=== PATIENT | female | born 1950 | race Caucasian/White ===

== ENCOUNTER → 2017-07-07 | Outpatient (CLI) | payer MEDICARE ==
--- NOTE | 2017-07-07 17:27 | REP ---
Left rib series: Three views including PA chest radiograph. History: Left-sided rib pain. Acute. Comparison study: Portable chest x-ray October 19, 2013. Findings: PA chest radiograph shows no evidence of pneumothorax or hydrothorax. The aorta is somewhat tortuous. Heart is not enlarged. There is diffuse osteopenia. Rib views show no evidence of acute rib fracture or focal bony destructive lesion. There are some degenerative changes in the thoracic spine. Impression: Diffuse osteopenia. No active cardiopulmonary disease seen. Signed by Missael Mary MD 07/08/2017 08:16 A
== END ==
LOC: M ADAMS 16:00
PROVIDERS: ATTEND Physician Assistant
DX: M85.9 Disorder of bone density and structure, unspecified (principal)

== ENCOUNTER → 2017-11-10 | Outpatient (REF) | payer MEDICARE ==
[2017-11-10 20:01] LABS: BASO % 0.3 % (0.0-1.0); EOS % 0.3 % (0.0-3.0); HEMATOCRIT 46.2 % (36.0-47.0); HEMOGLOBIN 14.6 g/dl (12.0-15.5); IMMATURE GRANULOCYTE % 0.4 % (0-3.0); LYMPH % 9.2 % (24.0-44.0); MEAN CORPUSCULAR HEMOGLOBIN 27.5 pg (27.0-33.0); MEAN CORPUSCULAR HGB CONC 31.6 g/dl (32.0-36.5); MONO # 0.7 10^3/uL (0.0-0.8); MONO % 5.9 % (0.0-5.0); NEUTROPHILS # 9.4 10^3/uL (1.8-7.7); NEUTROPHILS % 83.9 % (36.0-66.0); PLATELET COUNT, AUTOMATED 314 10^3/uL (150-450); RED BLOOD COUNT 5.31 10^6/uL (4.00-5.40); RED CELL DISTRIBUTION WIDTH 17.8 % (11.5-14.5); WHITE BLOOD COUNT 11.2 10^3/uL (4.0-10.0)
[2017-11-10 20:17] LABS: ALBUMIN 4.2 GM/DL (3.2-5.2); ALBUMIN/GLOBULIN RATIO 1.08 (1.00-1.93); ALKALINE PHOSPHATASE 142 U/L (45-117); ALT/SGPT 39 U/L (12-78); ANION GAP 8 MEQ/L (8-16); AST/SGOT 35 U/L (7-37); BILIRUBIN,TOTAL 0.2 MG/DL (0.2-1.0); BLOOD UREA NITROGEN 11 MG/DL (7-18); CALCIUM LEVEL 9.5 MG/DL (8.8-10.2); CARBON DIOXIDE LEVEL 27 MEQ/L (21-32); CHLORIDE LEVEL 110 MEQ/L (98-107); CREATININE FOR GFR 0.81 MG/DL (0.55-1.30); GLOMERULAR FILTRATION RATE > 60.0 (>45); GLUCOSE, FASTING 92 MG/DL (70-100); MAGNESIUM LEVEL 2.2 MG/DL (1.8-2.4); POTASSIUM SERUM 4.1 MEQ/L (3.5-5.1); SODIUM LEVEL 145 MEQ/L (136-145); TOTAL PROTEIN 8.1 GM/DL (6.4-8.2)
== END ==
LOC: M LAB REF 19:23
DX: R35.0 Frequency of micturition (principal); R42 Dizziness and giddiness
CPT/HCPCS: 83735

== ENCOUNTER → 2018-01-04 | Outpatient (REF) | payer MEDICARE | LOC: M LAB REF 12:51 | DX: M54.6 Pain in thoracic spine (principal); N39.0 Urinary tract infection, site not specified | CPT/HCPCS: 87086 ==

== ENCOUNTER → 2019-08-15 | Outpatient (REF) | payer MEDICARE ==
[2019-08-15 16:48] LABS: BASO % 0.6 % (0.0-1.0); EOS # 0.1 10^3/uL (0.0-0.5); EOS % 1.6 % (0.0-3.0); HEMATOCRIT 43.8 % (36.0-47.0); HEMOGLOBIN 14.3 g/dl (12.0-15.5); LYMPH # 1.8 10^3/uL (1.5-5.0); LYMPH % 26.1 % (24.0-44.0); MEAN CORPUSCULAR HEMOGLOBIN 29.9 pg (27.0-33.0); MEAN CORPUSCULAR HGB CONC 32.6 g/dl (32.0-36.5); MEAN CORPUSCULAR VOLUME 91.4 fl (80.0-96.0); MONO # 0.7 10^3/uL (0.0-0.8); MONO % 9.2 % (0.0-5.0); NEUTROPHILS # 4.4 10^3/uL (1.5-8.5); NEUTROPHILS % 62.2 % (36.0-66.0); PLATELET COUNT, AUTOMATED 227 10^3/uL (150-450); RED BLOOD COUNT 4.79 10^6/uL (4.00-5.40); WHITE BLOOD COUNT 7.1 10^3/uL (4.0-10.0)
[2019-08-15 16:59] LABS: ALBUMIN 3.8 GM/DL (3.2-5.2); ALT/SGPT 24 U/L (12-78); BILIRUBIN,TOTAL 0.4 MG/DL (0.2-1.0); BLOOD UREA NITROGEN 14 MG/DL (7-18); C REACTIVE PROTEIN QUANTITATIV < 0.30 MG/DL (0.00-0.30); CALCIUM LEVEL 9.3 MG/DL (8.8-10.2); CARBON DIOXIDE LEVEL 27 MEQ/L (21-32); CHLORIDE LEVEL 105 MEQ/L (98-107); CREATININE FOR GFR 0.75 MG/DL (0.55-1.30); GLOMERULAR FILTRATION RATE > 60.0 (>39); GLUCOSE, FASTING 81 MG/DL (70-100); POTASSIUM SERUM 4.3 MEQ/L (3.5-5.1); SODIUM LEVEL 139 MEQ/L (136-145); TOTAL PROTEIN 6.9 GM/DL (6.4-8.2)
[2019-08-15 17:22] LABS: ERYTHROCYTE SEDIMENTATION RATE 8 mm/hr (0-30)
== END ==
LOC: M SFHCRHEU 14:48
PROVIDERS: ATTEND Internal Medicine
DX: M05.79 Rheumatoid arthritis with rheumatoid factor of multiple sites without organ or systems involvement (principal)
CPT/HCPCS: 36415; 80053; 85025; 85652; 86140; G0463

== ENCOUNTER → 2020-05-12 | Outpatient (REF) | payer MEDICARE ==
[2020-05-12 17:46] LABS: BASO # 0.1 10^3/uL (0.0-0.2); BASO % 0.8 % (0.0-1.0); EOS # 0.2 10^3/uL (0.0-0.5); HEMATOCRIT 44.5 % (36.0-47.0); HEMOGLOBIN 14.2 g/dl (12.0-15.5); LYMPH # 1.9 10^3/uL (1.5-5.0); LYMPH % 25.9 % (24.0-44.0); MEAN CORPUSCULAR HEMOGLOBIN 29.8 pg (27.0-33.0); MEAN CORPUSCULAR HGB CONC 31.9 g/dl (32.0-36.5); MEAN CORPUSCULAR VOLUME 93.5 fl (80.0-96.0); MONO # 0.6 10^3/uL (0.0-0.8); MONO % 8.1 % (0.0-5.0); NEUTROPHILS # 4.7 10^3/uL (1.5-8.5); NEUTROPHILS % 63.1 % (36.0-66.0); PLATELET COUNT, AUTOMATED 266 10^3/uL (150-450); RED BLOOD COUNT 4.76 10^6/uL (4.00-5.40); WHITE BLOOD COUNT 7.4 10^3/uL (4.0-10.0)
[2020-05-12 18:02] LABS: ALBUMIN 3.5 GM/DL (3.2-5.2); ALT/SGPT 25 U/L (12-78); BILIRUBIN,TOTAL 0.2 MG/DL (0.2-1.0); BLOOD UREA NITROGEN 14 MG/DL (7-18); CALCIUM LEVEL 9.2 MG/DL (8.8-10.2); CARBON DIOXIDE LEVEL 27 MEQ/L (21-32); CHLORIDE LEVEL 107 MEQ/L (98-107); CREATININE FOR GFR 0.68 MG/DL (0.55-1.30); GLOMERULAR FILTRATION RATE > 60.0 (>39); GLUCOSE, FASTING 82 MG/DL (70-100); POTASSIUM SERUM 4.4 MEQ/L (3.5-5.1); SODIUM LEVEL 140 MEQ/L (136-145); TOTAL PROTEIN 6.8 GM/DL (6.4-8.2)
[2020-05-12 18:13] LABS: TOTAL 25(OH) VITAMIN D 38.6 NG/ML (30.0-100.0)
[2020-05-12 19:03] LABS: ERYTHROCYTE SEDIMENTATION RATE 9 mm/hr (0-30)
== END ==
LOC: M SFHCRHEU 15:26
PROVIDERS: ATTEND Internal Medicine
DX: M05.79 Rheumatoid arthritis with rheumatoid factor of multiple sites without organ or systems involvement (principal); M40.204 Unspecified kyphosis, thoracic region; Z79.899 Other long term (current) drug therapy

== ENCOUNTER → 2020-12-26 | Outpatient (REF) | payer MEDICARE | LOC: M WUC 20:20 | PROVIDERS: ATTEND Physician Assistant | DX: J02.9 Acute pharyngitis, unspecified (principal) ==

== ENCOUNTER 2021-03-03 13:56 | Emergency (ER) | payer MEDICARE ==
[~2021-03-03] VITALS: Ht 147.3 cm; Wt 54.5 kg
[2021-03-03] MEDS ORDERED: FOLI1TAB11 PO (15:58)
[2021-03-03] MEDS ORDERED: CBD OIL (15:58)
[2021-03-03] MEDS ORDERED: LISI10TA22 PO (15:58)
[2021-03-03] MEDS ORDERED: CALCTAB89 PO (15:58)
[2021-03-03 16:00] LABS: BASO # 0.1 10^3/uL (0.0-0.2); BASO % 0.9 % (0.0-1.0); EOS % 0.4 % (0.0-3.0); HEMATOCRIT 44.3 % (36.0-47.0); HEMOGLOBIN 14.7 g/dl (12.0-15.5); LYMPH # 0.7 10^3/uL (1.5-5.0); LYMPH % 10.4 % (24.0-44.0); MEAN CORPUSCULAR HEMOGLOBIN 30.1 pg (27.0-33.0); MEAN CORPUSCULAR HGB CONC 33.2 g/dl (32.0-36.5); MEAN CORPUSCULAR VOLUME 90.8 fl (80.0-96.0); MONO # 0.9 10^3/uL (0.0-0.8); MONO % 12.9 % (2.0-8.0); NEUTROPHILS # 5.2 10^3/uL (1.5-8.5); NEUTROPHILS % 74.8 % (36.0-66.0); PLATELET COUNT, AUTOMATED 298 10^3/uL (150-450); RED BLOOD COUNT 4.88 10^6/uL (4.00-5.40); WHITE BLOOD COUNT 6.9 10^3/uL (4.0-10.0)
--- NOTE | 2021-03-03 16:20 | REP ---
INDICATION: palpitations. COMPARISON: 07/07/2017 TECHNIQUE: PA and Lateral views. FINDINGS: There is a 4 cm left lower lobe mass. The lungs are otherwise clear. The heart is not enlarged. There is no failure. The mediastinum is not widened. Further evaluation with chest CT is recommended. IMPRESSION: 4 CM MASS LEFT LOWER LOBE WITH MALIGNANT APPEARANCE. FURTHER EVALUATION WITH CHEST CT RECOMMENDED. <Electronically signed by Morgan Bleivns > 03/03/21 [id number]
[2021-03-03 16:30] LABS: ALBUMIN 3.8 GM/DL (3.2-5.2); ALT/SGPT 33 U/L (12-78); BILIRUBIN,DIRECT < 0.1 MG/DL (0.0-0.2); BILIRUBIN,TOTAL 0.2 MG/DL (0.2-1.0); BLOOD UREA NITROGEN 14 MG/DL (7-18); CARBON DIOXIDE LEVEL 22 MEQ/L (21-32); CHLORIDE LEVEL 108 MEQ/L (98-107); CK-MB VALUE MASS 1.6 NG/ML (<3.6); CPK CREATINE PHOSPHOKINASE 80 U/L (26-192); CREATININE FOR GFR 0.97 MG/DL (0.55-1.30); FREE T4 1.15 NG/DL (0.76-1.46); GLOMERULAR FILTRATION RATE > 60.0 (>39); GLUCOSE, FASTING 99 MG/DL (70-100); MAGNESIUM LEVEL 2.3 MG/DL (1.8-2.4); PHOSPHORUS LEVEL 3.6 MG/DL (2.5-4.9); POTASSIUM SERUM 4.7 MEQ/L (3.5-5.1); SODIUM LEVEL 139 MEQ/L (136-145); TOTAL PROTEIN 7.2 GM/DL (6.4-8.2); TROPONIN I < 0.02 NG/ML (< 0.10)
[2021-03-03] MEDS ORDERED: ISOVUE-370 76% 100ML VIAL As Ordered ONE (16:41)
--- NOTE | 2021-03-03 17:07 | REP ---
INDICATION: palpitations ? lung mass. COMPARISON: Chest x-ray done earlier today TECHNIQUE: CT angio technique FINDINGS: 3.5 cm spiculated solid mass superior segment left lower lobe consistent with malignant neoplasm. Area of atelectasis in the left lower lobe. Lungs otherwise clear. No evidence of pulmonary embolus. No hilar or mediastinal adenopathy. Numerous thoracic compression fractures. Osteoporosis. Kyphosis. 4 cm cyst right lobe of the liver. 2.2 x 1.5 cm nodule left adrenal gland. Right adrenal gland unremarkable. IMPRESSION: 3.5 cm spiculated malignant-appearing mass superior segment left lower lobe. No evidence of pulmonary embolus. 2 cm nodule left adrenal gland. Numerous thoracic compression fractures Liver cyst. <Electronically signed by Morgan Blevins > 03/03/21 0134
[2021-03-03 18:15] VITALS: BP 113/56
--- NOTE | 2021-03-04 07:11 | ECGEPIP ---
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
--- NOTE | 2021-03-06 13:51 | ED PDOC ---
Post-Departure Follow-Up radiology report faxed to Esperanza Brady MD Mar 06, 2021 13:51
== END 2021-03-03 19:00 | disposition home or self-care (01) ==
LOC: EDBD 13:56 → M ED 13:56
DX: R00.2 Palpitations (principal); R91.1 Solitary pulmonary nodule; E27.9 Disorder of adrenal gland, unspecified; K76.89 Other specified diseases of liver; Z87.891 Personal history of nicotine dependence
CPT/HCPCS: 36415; 71046; 71275; 80048; 80076; 82550; 82553; 83735; 84100; 84439; 84443; 84484; 85025; 93005; 93041; 94760; 99285; Q9967

== ENCOUNTER → 2021-03-04 | Outpatient (CLI) | payer MEDICARE ==
[~2021-03-04] MED LIST: CALCTAB89 PO; CBD OIL; FOLI1TAB11 PO; LISI10TA22 PO
[2021-03-04 17:28] LABS: BASO # 0.1 10^3/uL (0.0-0.2); BASO % 0.7 % (0.0-1.0); EOS % 0.4 % (0.0-3.0); HEMATOCRIT 45.6 % (36.0-47.0); HEMOGLOBIN 14.6 g/dl (12.0-15.5); LYMPH # 0.5 10^3/uL (1.5-5.0); LYMPH % 7.5 % (24.0-44.0); MEAN CORPUSCULAR HEMOGLOBIN 29.3 pg (27.0-33.0); MEAN CORPUSCULAR VOLUME 91.4 fl (80.0-96.0); MONO % 14.4 % (2.0-8.0); NEUTROPHILS # 5.5 10^3/uL (1.5-8.5); NEUTROPHILS % 76.4 % (36.0-66.0); PLATELET COUNT, AUTOMATED 301 10^3/uL (150-450); RED BLOOD COUNT 4.99 10^6/uL (4.00-5.40); WHITE BLOOD COUNT 7.2 10^3/uL (4.0-10.0)
== END ==
LOC: M PLALAB 14:48
PROVIDERS: ATTEND Internal Medicine Pulmonary Disease
DX: R91.8 Other nonspecific abnormal finding of lung field (principal)

== ENCOUNTER → 2021-03-20 | Outpatient (CLI) | payer MEDICARE ==
[~2021-03-20] MED LIST changes: +AUGM500T34 PO
== END ==
LOC: M LABSMTC 10:19
PROVIDERS: ATTEND Anesthesiology
DX: Z01.812 Encounter for preprocedural laboratory examination (principal)

== ENCOUNTER 2021-03-25 08:06 | Day surgery (SDC) | payer MEDICARE ==
[~2021-03-25] VITALS: Ht 149.9 cm; Wt 54.4 kg
[~2021-03-25 08:06] MED LIST changes: +ALBUTEROL SULFATE 2.5 MG/0.5 ML INH NEB SOLN INH ONE; +LIDOCAINE 1% MDV 20ML VIAL SQ PRN; +LIDOCAINE 4% INJ 5ML AMP NEB ONE; +LR 1,000 ML IV ONE
[2021-03-25] MEDS ORDERED: LIDOCAINE 1% SDV 30ML VIAL As Ordered ONE (08:42)
[2021-03-25] MEDS ORDERED: EPINEPHrine 1MG/10ML SYRINGE 1.5IN As Ordered ONE ×2 (08:42→09:29)
[2021-03-25] MEDS ORDERED: THROMBIN SOLN 5,000 UNITS VIAL As Ordered ONE ×2 (08:42→09:28)
[2021-03-25] MEDS ORDERED: CETACAINE SPRAY 5GM As Ordered ONE (08:42)
[2021-03-25] MEDS ORDERED: ROCURONIUM BROMIDE 50 MG/5 ML VIAL As Ordered ONE (08:53)
[2021-03-25] MEDS ORDERED: propofoL 200 MG/20 ML VIAL As Ordered ONE (08:53)
[2021-03-25] MEDS ORDERED: LIDOCAINE 2% 100MG/5ML SDV (FOR ANES.) As Ordered ONE (08:53)
[2021-03-25] MEDS ORDERED: dexameTHASONE 4 MG/ML 1ML VIAL (J1100 PER 1MG) As Ordered ONE (08:53)
[2021-03-25] MEDS ORDERED: MIDAZOLAM INJ 2MG/2ML VIAL (J2250 PER 1MG) As Ordered ONE (08:54)
[2021-03-25] MEDS ORDERED: fentaNYL 100 MCG/2 ML INJECTION (J3010) As Ordered ONE (08:54)
[2021-03-25] MEDS ORDERED: LIDOCAINE 1% MDV 20ML VIAL As Ordered ONE (09:28)
[2021-03-25] MEDS ORDERED: PHENYLephrine 500MCG 5ML (100MCG/ML) SYRINGE As Ordered ONE (09:34)
[2021-03-25] MEDS ORDERED: SUGAMMADEX SODIUM 500 MG/5 ML VIAL (BRIDION) As Ordered ONE (09:34)
[2021-03-25] MEDS ORDERED: LACRILUBE (AKWA TEARS) OPHTH OINT 3.5 GM As Ordered ONE (09:44)
[2021-03-25] MEDS ORDERED: LR 1,000 ML IV SCH (10:10)
[2021-03-25] MEDS ORDERED: ONDANSETRON 4MG/2ML VIAL IV PRN (10:10)
[2021-03-25] MEDS ORDERED: METOCLOPRAMIDE INJ 10MG/2ML VIAL (J2765 PER 1) IV PRN (10:10)
[2021-03-25] MEDS ORDERED: MEPERIDINE INJ 25 MG/ML VIAL (J2175) IV PRN (10:10)
[2021-03-25] MEDS ORDERED: oxyCODONE 5MG TAB PO PRN (10:10)
[2021-03-25] MEDS ORDERED: fentaNYL 100 MCG/2 ML INJECTION (J3010) IV PRN (10:10)
--- NOTE | 2021-03-25 10:33 | REP ---
INDICATION: POST OP IN PACU. COMPARISON: Comparison chest x-ray March 03, 2021. TECHNIQUE: Sitting AP portable chest x-ray. Single-view. FINDINGS: The patient is rotated very slightly to the left. There is no evidence of pneumothorax or hydrothorax. The left perihilar soft tissue mass is again seen. EKG monitoring electrodes and oxygen delivery tubing are noted. No new infiltrate is seen. Heart size is unchanged. IMPRESSION: Left lower lobe perihilar mass again seen. No complication noted. <Electronically signed by Danny Mary > 03/25/21 1021
[2021-03-25 11:11] VITALS: BP 143/73
--- NOTE | 2021-03-25 12:29 | RO ---
OPERATIVE NOTE DATE OF OPERATION: 03/25/2021 PREOPERATIVE DIAGNOSIS: Left lower lobe mass, abnormal chest CT. POSTOPERATIVE DIAGNOSIS: Left lower lobe mass, abnormal chest CT. PROCEDURE: Bronchoscopy with endobronchial ultrasound linear probe. PROCEDURALIST: CHANDANA VALENTINO DO [facility] FIRE FIGHTER: GLORIA GONSALEZ MD SPECIMENS OBTAINED: 1. Endobronchial biopsy of left lower lobe. 2. Cytobrush of left lower lobe. ANESTHESIA: General. ESTIMATED BLOOD LOSS: Less than 15 ml. COMPLICATIONS: None. DRAINS: None. EPI of 1:10,000 concentration was administered during the procedure. DESCRIPTION OF PROCEDURE: After informed consent was reviewed with the patient, she was brought back to the OR #A. The patient was intubated, the case was handed over to me with an 8.5 endotracheal tube. Time-out was performed with two patient identifiers identifying correct site, correct procedure correlating name and date of to chest CT and robotic imaging. Robot was not used as there was an endobronchial lesion. Cetacaine spray was used to anesthetize the airway. Trachea was midline. Mellissa was very sharp with out-splaying. Right and left mainstem bronchi were normal without endobronchial lesions. RB 1 through 10 without endobronchial lesions but some cartilaginous abnormalities. No endobronchial lesion in RB 1 through 10. LB 1 through 5 was inspected without endobronchial lesion. The superior basal segment on the left lower lobe was without endobronchial lesion with three open airways. The lateral basal segment in the left lower lobe was obscured with tumor. Anterior and posterior basal left lower lobe airways were without lesions. The lateral basal segment was biopsied and cytology suggested abnormal cells with Touch Prep. Endobronchial forceps biopsies were obtained followed by cytology brushing. After adequate sampling the bronchoscope was removed, endobronchial ultrasound was then inserted to view the mediastinum. Both right and left pre-carinal areas were without significant adenopathy. The mellissa was very sharp without significant adenopathy. There was a small left hilar node measuring 4 mm, unobtainable due to surrounding vascular structures. Therefore, in summary, there was no concerning adenopathy which correlates with this CT scan. Endobronchial ultrasound was removed and the 1T190 bronchoscope was reinserted to ensure hemostasis. After hemostasis was assured, bronchoscope was removed, the case was handed over to Anesthesia. Patient was extubated and is in recovery. Post-procedure chest x-ray is pending. At this point in time no observed complications. MTDD
== END 2021-03-25 11:15 | disposition home or self-care (01) ==
LOC: M SDC 08:06
PROVIDERS: ATTEND Internal Medicine Pulmonary Disease
DX: C34.32 Malignant neoplasm of lower lobe, left bronchus or lung (principal); I10 Essential (primary) hypertension; J43.1 Panlobular emphysema; K21.9 Gastro-esophageal reflux disease without esophagitis; M81.0 Age-related osteoporosis without current pathological fracture; Z79.899 Other long term (current) drug therapy; Z87.891 Personal history of nicotine dependence
CPT/HCPCS: 31623; 31652; 71045; 88104; 88305; 88341; 88342; J1100; J2250; J2370; J3010

== ENCOUNTER → 2021-04-13 | Outpatient (CLI) | payer MEDICARE ==
[~2021-04-13] MED LIST changes: -ALBUTEROL SULFATE 2.5 MG/0.5 ML INH NEB SOLN INH ONE; -LIDOCAINE 1% MDV 20ML VIAL SQ PRN; -LIDOCAINE 4% INJ 5ML AMP NEB ONE; -LR 1,000 ML IV ONE
--- NOTE | 2021-04-14 08:46 | REP ---
INDICATION: INITIAL STAGING LEFT LOWER LOBE LUNG CANCER C34.32. Adenocarcinoma on bronchoscopy. COMPARISON: Comparison CT study of the chest March 03, 2021. TECHNIQUE: Forty-eight minutes following the intravenous injection of a 8.44 mCi dose of F-18 FDG, three-dimensional PET scintigraphy is acquired from the skull base to the proximal thighs. Triplanar noncontrast CT scanning is acquired through the same anatomic range for attenuation correction, and image registration with scan parameters optimized to minimize radiation exposure to the patient. PET scintigraphy and CT datasets were fused and displayed on a workstation with multiplanar and projection display capability. FINDINGS: Head and neck soft tissues are unremarkable. The the superior segment left lower lobe mass is rather hypermetabolic. Maximum standard uptake value within this lesion is 10.61. There is abnormal hilar or mediastinal hypermetabolic uptake focus. No other abnormal pulmonary parenchymal hypermetabolic uptake is seen. In the abdomen and pelvis, there is normal distribution of tracer to the liver, spleen, GI tract, and tract. The small left adrenal nodule identified on recent CT study is seen to be low-density on today's accompanying noncontrast CT, mean Hounsfield unit density is -14 consistent with this being a benign adrenal nodule. No significant uptake. There are 2 simple cysts in the liver. No abnormal abdominal or pelvic hypermetabolic uptake. No abnormal skeletal uptake. IMPRESSION: The superior segment left lower lobe mass is quite hypermetabolic. No other abnormal hypermetabolic focus. <Electronically signed by Danny Mary > 04/14/21 0803
== END ==
LOC: M PLARAD 14:49
PROVIDERS: ATTEND Internal Medicine Pulmonary Disease
DX: C34.32 Malignant neoplasm of lower lobe, left bronchus or lung (principal)
CPT/HCPCS: 78815; A9552

== ENCOUNTER → 2021-05-26 | Outpatient (CLI) | payer MEDICARE ==
[~2021-05-26] MED LIST changes: +PROHANCE 279.3MG/ML 15ML VIAL As Ordered ONE
--- NOTE | 2021-05-26 15:30 | REPVR ---
PROCEDURE INFORMATION: Exam: MR Head Without and With Contrast Exam date and time: 05/26/2021 3:03 PM Age: 70 years old Clinical indication: Nscls, staging TECHNIQUE: Imaging protocol: MR of the head without and with intravenous contrast. Contrast material: PROHANCE; Contrast volume: 10 ml; Contrast route: INTRAVENOUS (IV); COMPARISON: PET/CT Skull/mid thigh 04/13/2021 4:15 PM FINDINGS: Brain: There are occasional nonspecific foci of high signal abnormality in the morris radiata and centrum semiovale. These are best seen on the flair images. These foci may represent areas of gliosis, demyelination, and/or chronic ischemic change. Cerebral ventricles: Normal. No ventriculomegaly. Bones/joints: Unremarkable. Paranasal sinuses: Normal as visualized. No acute sinusitis. Mastoid air cells: Normal as visualized. No mastoid effusion. Orbital cavity: Unremarkable. Soft tissues: Unremarkable. Other findings: There is no abnormal enhancement. IMPRESSION: There are occasional nonspecific foci of high signal abnormality in the morris radiata and centrum semiovale. These are best seen on the flair images. These foci may represent areas of gliosis, demyelination, and/or chronic ischemic change. No acute infarct is identified. Electronically signed by: Sidney Raymundo On 05/26/2021 15:30:15 PM
== END ==
LOC: M RAD 10:39
PROVIDERS: ATTEND Thoracic Surgery (Cardiothoracic Vascular Surgery)
DX: C34.32 Malignant neoplasm of lower lobe, left bronchus or lung (principal)
CPT/HCPCS: 70553; A9576

== ENCOUNTER → 2021-05-29 | Outpatient (CLI) | payer MEDICARE ==
[~2021-05-29] MED LIST changes: -PROHANCE 279.3MG/ML 15ML VIAL As Ordered ONE
--- NOTE | 2021-05-31 10:47 | ECHO ---
ECHOCARDIOGRAM DATE OF PROCEDURE: 05/29/2021 Age: 70 Gender: Female Height: 157 cm Weight: 65 kg REFERRING PHYSICIAN: Laci Jackson DO. PATIENT LOCATION: Outpatient. REASON FOR STUDY: Chemotherapy monitoring. Malignant neoplasm of the lungs. 2D MEASUREMENTS: IVS 1.1 cm LV 3.7 cm LVPW 0.9 cm LA 3.7 cm Aorta 3.0 cm DOPPLER MEASUREMENT Peak velocity across the aortic valve 1.1 m/s Peak velocity across the LVOT 0.7 m/s Mitral E 0.51 Mitral A 0.75 with a ratio of 0.7 Maximum tricuspid valve velocity 1.9 m/s 2D COMMENTS: 1. Normal left ventricular size, wall thickness, and normal global left ventricular systolic function. The estimated left ventricular systolic ejection fraction is 60% to 65%. 2. Normal left atrium. Normal right atrium and right ventricle. 3. The atrial septum appeared to be normal without evidence of defect or shunt. 4. Normal aortic root. 5. No pericardial effusion seen. 6. Minimally calcified aortic valve with normal leaflet excursion. 7. Mildly calcified mitral annulus with normal anterior mitral valve leaflet motion. Normal tricuspid valve and pulmonic valve. The proximal pulmonary artery branches were not well visualized. 8. The inferior vena cava was not visualized. DOPPLER: Detects trace aortic regurgitation, mild mitral regurgitation, trace tricuspid regurgitation. The calculated pulmonary artery systolic pressure was normal. IMPRESSION: 1. Normal global left ventricular systolic function. There are some features of grade 1 left ventricular diastolic dysfunction manifested by abnormal relaxation. 2. Aortic valve sclerosis with trace aortic regurgitation, but no aortic stenosis. 3. Mitral annular calcification with mild mitral regurgitation. 4. Trace tricuspid regurgitation with a normal calculated pulmonary artery systolic pressure.
== END ==
LOC: M CARPUL 11:13
PROVIDERS: ATTEND Thoracic Surgery (Cardiothoracic Vascular Surgery)
DX: C34.32 Malignant neoplasm of lower lobe, left bronchus or lung (principal); R68.89 Other general symptoms and signs

== ENCOUNTER → 2021-06-11 | Outpatient (CLI) | payer MEDICARE ==
[~2021-06-11] MED LIST changes: +ISOVUE-370 76% 100ML VIAL As Ordered ONE
--- NOTE | 2021-06-11 11:06 | REP ---
INDICATION: LT LUNG CA STAGING COMPARISON: 03/03/2021 TECHNIQUE: Axial contrast enhanced images from the thoracic inlet to the upper abdomen with coronal and sagittal reformations using 75 ml Isovue 370 intravenous contrast material. [address] CT examination was performed using the following dose reduction techniques: Automated exposure control, adjustment of mA and/or kv according to the patient's size, and use of iterative reconstruction technique. FINDINGS: There is a 3.5 cm spiculated mass in the right lower lobe with suspected small left hilar lymph node. Remainder of lung gross demonstrate COPD/emphysematous changes. No effusion. No consolidation or further masses/nodules are identified. Tracheobronchial tree is patent. Mediastinum demonstrates age-related changes to the thoracic aorta, pulmonary vasculature and heart/pericardium. No pericardial effusion or cardiomegaly. Limited upper abdomen includes stable hepatic hypodensities likely representing cysts measuring up to 3.6 cm. Enlarged heterogeneous appearing left adrenal gland cannot exclude associated metastatic disease. Surrounding musculoskeletal structures without acute osseous abnormality. IMPRESSION: 1. Solitary 3.5 cm spiculated mass in the left lower lobe with possible left hilar lymph node. 2. Heterogeneous mildly prominent left adrenal gland suspicious for metastatic disease. 3. Hepatic hypodensities likely represent cysts and remains stable. <Electronically signed by Gera Shaffer > 06/11/21 [id number]
== END ==
LOC: M RAD 09:20
PROVIDERS: ATTEND Thoracic Surgery (Cardiothoracic Vascular Surgery)
DX: C34.32 Malignant neoplasm of lower lobe, left bronchus or lung (principal)
CPT/HCPCS: 71260; Q9967

== ENCOUNTER → 2021-12-18 | Outpatient (CLI) | payer MEDICARE ==
[~2021-12-18] MED LIST changes: +DEXA4TA PO; +GASTROGRAFIN SOLUTION 30ML (Q9963) As Ordered ONE; +ONDA-84 PO; +PROC10TA5 PO
== END ==
LOC: M RAD 14:00
PROVIDERS: ATTEND Nurse Practitioner
DX: C34.32 Malignant neoplasm of lower lobe, left bronchus or lung (principal); Z90.2 Acquired absence of lung [part of]; E04.1 Nontoxic single thyroid nodule; I70.0 Atherosclerosis of aorta; M81.0 Age-related osteoporosis without current pathological fracture; S22.000D Wedge compression fracture of unspecified thoracic vertebra, subsequent encounter for fracture with routine healing
CPT/HCPCS: 71260; 74177; Q9963; Q9967

== ENCOUNTER → 2022-03-18 | Outpatient (CLI) | payer MEDICARE ==
[~2022-03-18] MED LIST changes: -GASTROGRAFIN SOLUTION 30ML (Q9963) As Ordered ONE; -ISOVUE-370 76% 100ML VIAL As Ordered ONE
== END ==
LOC: M RAD 11:18
PROVIDERS: ATTEND Family Medicine
DX: M25.511 Pain in right shoulder (principal); M50.31 Other cervical disc degeneration, high cervical region; M50.322 Other cervical disc degeneration at C5-C6 level

== ENCOUNTER → 2022-06-30 | Outpatient (CLI) | payer MEDICARE | LOC: M SOG 14:53 | PROVIDERS: ATTEND Orthopaedic Surgery | DX: M25.531 Pain in right wrist (principal) ==

== ENCOUNTER 2022-09-03 08:54 | Emergency (ER) | payer MEDICARE ==
[~2022-09-03] VITALS: Ht 147.3 cm; Wt 56.2 kg
[2022-09-03] MEDS ORDERED: GABA-282 PO (12:31)
[2022-09-03 13:28] VITALS: BP 116/53
== END 2022-09-03 13:29 | disposition home or self-care (01) ==
LOC: M ED 08:54
DX: S22.050A Wedge compression fracture of T5-T6 vertebra, initial encounter for closed fracture (principal); E04.1 Nontoxic single thyroid nodule; I10 Essential (primary) hypertension; G47.33 Obstructive sleep apnea (adult) (pediatric); C34.90 Malignant neoplasm of unspecified part of unspecified bronchus or lung; F12.10 Cannabis abuse, uncomplicated; F10.10 Alcohol abuse, uncomplicated; Z79.811 Long term (current) use of aromatase inhibitors; Z79.891 Long term (current) use of opiate analgesic; Z79.899 Other long term (current) drug therapy

== ENCOUNTER → 2022-09-14 | Outpatient (CLI) | payer MEDICARE ==
[~2022-09-14] MED LIST changes: +GABA-282 PO
[2022-09-14 13:42] LABS: THYROID STIMULATING HORMONE 1.066 uIU/ML (0.55-4.78); THYROXINE (T4) 8.4 UG/DL (4.5-10.9)
[2022-09-14 13:43] LABS: FREE THYROXINE INDEX 2.7 % (1.3-4.8); T UPTAKE 32.4 % (22.5-37.0)
[2022-09-14 13:47] LABS: FOLATE 14.77 NG/ML (>5.4)
== END ==
LOC: M PLALAB 08:49
PROVIDERS: ATTEND Psychiatry & Neurology Neurology
DX: D51.9 Vitamin B12 deficiency anemia, unspecified (principal); E51.9 Thiamine deficiency, unspecified; E03.9 Hypothyroidism, unspecified; R25.1 Tremor, unspecified

== ENCOUNTER 2022-10-22 22:00 | Emergency (ER) | payer MEDICARE ==
[~2022-10-22] VITALS: Ht 149.9 cm; Wt 60.0 kg
[2022-10-22] MEDS ORDERED: MORPHINE 2 MG/ML 1ML VIAL IV ONE (22:20)
[2022-10-22] MEDS ORDERED: ACETAMINOPHEN 1000MG 100ML IV BAG IV ONE (22:50)
[2022-10-23 00:14] LABS: BLOOD UREA NITROGEN 15 MG/DL (9-23); CALCIUM LEVEL 9.2 MG/DL (8.3-10.6); CARBON DIOXIDE LEVEL 26 MMOL/L (20-31); CHLORIDE LEVEL 104 MMOL/L (98-107); CREATININE FOR GFR 0.63 MG/DL (0.55-1.30); GLOMERULAR FILTRATION RATE > 60.0 (>39); GLUCOSE, FASTING 127 MG/DL (74-106); POTASSIUM SERUM 4.1 MMOL/L (3.5-5.1); SODIUM LEVEL 137 MMOL/L (136-145)
[2022-10-23] MEDS ORDERED: MORPHINE 4 MG/ML 1ML VIAL IV ONE (00:30)
[2022-10-23 00:47] LABS: BASO % 0.3 % (0.0-1.0); EOS % 0.1 % (0.0-3.0); HEMATOCRIT 42.5 % (36.0-47.0); HEMOGLOBIN 13.6 g/dl (12.0-15.5); LYMPH # 0.9 10^3/uL (1.5-5.0); LYMPH % 5.6 % (24.0-44.0); MEAN CORPUSCULAR HEMOGLOBIN 28.8 pg (27.0-33.0); MONO # 1.1 10^3/uL (0.0-0.8); NEUTROPHILS # 13.3 10^3/uL (1.5-8.5); NEUTROPHILS % 85.3 % (36.0-66.0); PLATELET COUNT, AUTOMATED 231 10^3/uL (150-450); RED BLOOD COUNT 4.72 10^6/uL (4.00-5.40); WHITE BLOOD COUNT 15.6 10^3/uL (4.0-10.0)
[2022-10-23 01:09] LABS: RSV AMPLIFICATION NEGATIVE (NEGATIVE)
[2022-10-23 01:25] VITALS: BP 157/68
== END 2022-10-23 01:46 | disposition short-term general hospital (02) ==
LOC: M ED 22:00 → EDBD 22:00 → M ED 10-23 01:46
DX: S72.421A Displaced fracture of lateral condyle of right femur, initial encounter for closed fracture (principal); S22.080A Wedge compression fracture of T11-T12 vertebra, initial encounter for closed fracture; W10.9XXA Fall (on) (from) unspecified stairs and steps, initial encounter; I10 Essential (primary) hypertension; C56.9 Malignant neoplasm of unspecified ovary; Z85.118 Personal history of other malignant neoplasm of bronchus and lung; Y92.009 Unspecified place in unspecified non-institutional (private) residence as the place of occurrence of the external cause; Z79.811 Long term (current) use of aromatase inhibitors; Z79.899 Other long term (current) drug therapy
CPT/HCPCS: 72125; 72128; 73700; 80048; 85025; 87631; 96374; 96375; 96376; 99284; J0131

== ENCOUNTER → 2023-01-06 | Outpatient (CLI) | payer MEDICARE ==
[~2023-01-06] MED LIST changes: +PRIM50TA6
== END ==
LOC: M SOG 10:47
PROVIDERS: ATTEND Orthopaedic Surgery
DX: M17.11 Unilateral primary osteoarthritis, right knee (principal); M25.761 Osteophyte, right knee; Q74.1 Congenital malformation of knee

== ENCOUNTER → 2023-05-24 | Outpatient (CLI) | payer MEDICARE ==
[2023-05-24 10:37] LABS: BASO % 0.5 % (0.0-1.0); EOS # 0.1 10^3/uL (0.0-0.5); EOS % 1.3 % (0.0-3.0); HEMATOCRIT 42.1 % (36.0-47.0); HEMOGLOBIN 13.4 g/dl (12.0-15.5); LYMPH # 1.4 10^3/uL (1.5-5.0); LYMPH % 16.6 % (24.0-44.0); MEAN CORPUSCULAR HEMOGLOBIN 28.8 pg (27.0-33.0); MEAN CORPUSCULAR HGB CONC 31.8 g/dl (32.0-36.5); MEAN CORPUSCULAR VOLUME 90.3 fl (80.0-96.0); MONO # 0.7 10^3/uL (0.0-0.8); MONO % 8.5 % (2.0-8.0); NEUTROPHILS # 6.3 10^3/uL (1.5-8.5); NEUTROPHILS % 72.9 % (36.0-66.0); PLATELET COUNT, AUTOMATED 298 10^3/uL (150-450); RED BLOOD COUNT 4.66 10^6/uL (4.00-5.40); WHITE BLOOD COUNT 8.6 10^3/uL (4.0-10.0)
[2023-05-24 11:00] LABS: ALBUMIN 3.5 G/DL (3.2-5.2); ALKALINE PHOSPHATASE 126 U/L (46-116); ALT/SGPT 27 U/L (7.0-40); AST/SGOT 23 U/L (<34); BILIRUBIN,TOTAL 0.3 MG/DL (0.3-1.2); BLOOD UREA NITROGEN 9 MG/DL (9-23); CARBON DIOXIDE LEVEL 27 MMOL/L (20-31); CHLORIDE LEVEL 103 MMOL/L (98-107); CREATININE FOR GFR 0.56 MG/DL (0.55-1.30); GLOMERULAR FILTRATION RATE > 60.0 (>39); GLUCOSE, FASTING 92 MG/DL (74-106); POTASSIUM SERUM 4.3 MMOL/L (3.5-5.1); SODIUM LEVEL 140 MMOL/L (136-145); TOTAL PROTEIN 6.9 G/DL (5.7-8.2)
== END ==
LOC: M LAB 09:51
PROVIDERS: ATTEND Internal Medicine Medical Oncology
DX: C34.90 Malignant neoplasm of unspecified part of unspecified bronchus or lung (principal)

== ENCOUNTER → 2023-05-26 | Outpatient (CLI) | payer MEDICARE ==
[~2023-05-26] MED LIST changes: +ISOVUE-370 76% 100ML VIAL As Ordered ONE
== END ==
LOC: M RAD 09:55
PROVIDERS: ATTEND Nurse Practitioner
DX: C34.90 Malignant neoplasm of unspecified part of unspecified bronchus or lung (principal)
CPT/HCPCS: 71260; Q9967

== ENCOUNTER → 2023-09-08 | Outpatient (CLI) | payer MEDICARE ==
[~2023-09-08] MED LIST changes: +GASTROGRAFIN SOLUTION 30ML As Ordered ONE; +OMEP10CASR PO
== END ==
LOC: M RAD 11:16
PROVIDERS: ATTEND Internal Medicine Hematology & Oncology
DX: C34.90 Malignant neoplasm of unspecified part of unspecified bronchus or lung (principal); J34.9 Unspecified disorder of nose and nasal sinuses
CPT/HCPCS: 71260; 74177; Q9963; Q9967

== ENCOUNTER 2024-01-22 15:18 | Observation (INO) | payer OTHER, MEDICARE ==
[~2024-01-22] VITALS: Ht 147.3 cm; Wt 59.5 kg
[~2024-01-22 15:18] MED LIST changes: -GASTROGRAFIN SOLUTION 30ML As Ordered ONE; -ISOVUE-370 76% 100ML VIAL As Ordered ONE
[2024-01-22] MEDS: ACETAMINOPHEN TAB 650MG DOSE (2X325MG) PO ONE (15:45)
[2024-01-22 16:00] LABS: VENOUS BASE EXCESS -2.1 (-2.0-2.0); VENOUS HCO3 22.7 MMOL/L (23.0-27.0); VENOUS O2 SATURATION 70.6 % (60.0-80.0); VENOUS PARTIAL PRESSURE CO2 39.2 mmHg (38.0-50.0); VENOUS PARTIAL PRESSURE O2 37.2 mmHg (30.0-50.0); VENOUS TOTAL CO2 23.9 MMOL/L (24.0-28.0)
[2024-01-22 16:01] LABS: BASO % 0.4 % (0.0-1.0); EOS # 0.1 10^3/uL (0.0-0.5); HEMATOCRIT 44.1 % (36.0-47.0); HEMOGLOBIN 14.1 g/dl (12.0-15.5); LYMPH # 1.8 10^3/uL (1.5-5.0); LYMPH % 16.6 % (24.0-44.0); MEAN CORPUSCULAR HEMOGLOBIN 29.1 pg (27.0-33.0); MEAN CORPUSCULAR VOLUME 90.9 fl (80.0-96.0); MONO # 0.8 10^3/uL (0.0-0.8); MONO % 7.7 % (2.0-8.0); NEUTROPHILS % 73.3 % (36.0-66.0); PLATELET COUNT, AUTOMATED 229 10^3/uL (150-450); RED BLOOD COUNT 4.85 10^6/uL (4.00-5.40); WHITE BLOOD COUNT 10.8 10^3/uL (4.0-10.0)
[2024-01-22] MEDS: MORPHINE 4 MG/ML 1ML VIAL IV ONE (16:01)
[2024-01-22] MEDS: NS 1,000 ML IV ONE ×2 (16:01→16:40)
[2024-01-22] MEDS ORDERED: ISOVUE-370 76% 100ML VIAL As Ordered ONE (16:13)
[2024-01-22 16:14] LABS: INR 0.92; PROTHROMBIN TIME 12.1 SECONDS (12.5-14.5)
[2024-01-22 16:22] LABS: ETHYL ALCOHOL (ETHANOL) < 0.003 % (0.000-0.010); LIPASE 54 U/L (12-53)
[2024-01-22 16:23] LABS: AMYLASE 81 U/L (30-118)
[2024-01-22 16:24] LABS: ALBUMIN 3.9 G/DL (3.2-5.2); ALKALINE PHOSPHATASE 104 U/L (46-116); ALT/SGPT 17 U/L (7.0-40); AST/SGOT 25 U/L (<34); BILIRUBIN,DIRECT < 0.1 MG/DL (<0.4); BILIRUBIN,TOTAL 0.3 MG/DL (0.3-1.2); BLOOD UREA NITROGEN 15 MG/DL (9-23); CALCIUM LEVEL 9.5 MG/DL (8.3-10.6); CARBON DIOXIDE LEVEL 27 MMOL/L (20-31); CHLORIDE LEVEL 104 MMOL/L (98-107); CK-MB VALUE MASS 6.8 NG/ML (<3.6); CREATININE FOR GFR 0.67 MG/DL (0.55-1.30); GLOMERULAR FILTRATION RATE > 60.0 (>39); GLUCOSE, FASTING 135 MG/DL (74-106); POTASSIUM SERUM 3.8 MMOL/L (3.5-5.1); SODIUM LEVEL 138 MMOL/L (136-145); TOTAL PROTEIN 6.5 G/DL (5.7-8.2)
[2024-01-22 16:25] LABS: CPK CREATINE PHOSPHOKINASE 172 U/L (34-145); MB/CK RELATIVE INDEX 3.95 (< OR =4)
[2024-01-22] MEDS: KETOROLAC 30 MG/ML 1ML VIAL IV ONE (16:45)
[2024-01-22] MEDS ORDERED: HYDROMORPHONE HCL 0.5 MG/ 0.5 ML SYRINGE IV ONE (17:35)
[2024-01-22] MEDS: HYDROMORPHONE HCL 0.5 MG/ 0.5 ML SYRINGE IV ONE (17:38)
[2024-01-22 17:48] LABS: APPEARANCE, URINE CLEAR (CLEAR); BACTERIA, URINE AUTO NEGATIVE (NEGATIVE); BILIRUBIN, URINE AUTO NEGATIVE (NEGATIVE); BLOOD, URINE BLOOD NEGATIVE (NEGATIVE); COLOR, URINE YELLOW (YELLOW); GLUCOSE, URINE (UA) AUTO NEGATIVE (NEGATIVE); KETONE, URINE AUTO NEGATIVE (NEGATIVE); LEUKOCYTE ESTERASE, URINE AUTO NEGATIVE (NEGATIVE); NITRITE, URINE AUTO NEGATIVE (NEGATIVE); PROTEIN, URINE AUTO NEGATIVE (NEGATIVE); RBC, URINE AUTO 1 /HPF (0-3); SQUAMOUS EPITHELIAL CELL UR AU 0 /HPF (0-6); UROBILINOGEN, URINE AUTO 0.2 mg/dL (0.0-2.0); WBC, URINE AUTO 1 /HPF (0-3)
[2024-01-22] MEDS ORDERED: VITA-168 PO (17:55)
[2024-01-22] MEDS ORDERED: ACET650T61 PO (17:55)
[2024-01-22] MEDS ORDERED: CARB25TA9 PO (17:55)
[2024-01-22 17:59] LABS: AMPHETAMINES LEVEL URINE NEGATIVE (NEGATIVE); BENZODIAZEPINES URINE NEGATIVE (NEGATIVE)
[2024-01-22 18:00] LABS: BARBITURATES URINE NEGATIVE (NEGATIVE); CANNABINOIDS URINE NEGATIVE (NEGATIVE); COCAINE METABOLITE URINE NEGATIVE (NEGATIVE); METHADONE URINE NEGATIVE (NEGATIVE); PHENCYCLIDINE URINE NEGATIVE (NEGATIVE)
[2024-01-22] MEDS ORDERED: HOME MED LIST COMPLETE! XX SCH (18:00)
[2024-01-22 18:01] LABS: OPIATES URINE POSITIVE (NEGATIVE)
[2024-01-22] MEDS ORDERED: MORPHINE 2 MG/ML 1ML VIAL IV PRN (19:15)
[2024-01-22] MEDS ORDERED: MIRALAX *UNIT DOSE* 17GM PACKET PO PRN (19:15)
[2024-01-22] MEDS ORDERED: ACETAMINOPHEN TAB 650MG DOSE (2X325MG) PO PRN (19:15)
[2024-01-22] MEDS: PERCOCET 5MG/325MG TAB PO PRN (20:07)
[2024-01-22] MEDS: DOCUSATE SODIUM 100MG CAPSULE PO SCH (20:08)
[2024-01-22] MEDS: SINEMET 25-100 MG TAB PO SCH (20:08)
[2024-01-22] MEDS: NS 1,000 ML IV SCH (20:08)
[2024-01-22 20:34] VITALS: BP 158/98; TEMP 97.5; O2SAT 94
[2024-01-22] MEDS: ONDANSETRON 4MG 2ML VIAL IV PRN (20:49)
[2024-01-23 04:00] VITALS: BP 123/76; TEMP 97.7; O2SAT 96
[2024-01-23 05:59] LABS: HEMATOCRIT 38.9 % (36.0-47.0); HEMOGLOBIN 12.8 g/dl (12.0-15.5); MEAN CORPUSCULAR HEMOGLOBIN 30.3 pg (27.0-33.0); MEAN CORPUSCULAR HGB CONC 32.9 g/dl (32.0-36.5); MEAN CORPUSCULAR VOLUME 92.2 fl (80.0-96.0); PLATELET COUNT, AUTOMATED 194 10^3/uL (150-450); RED BLOOD COUNT 4.22 10^6/uL (4.00-5.40)
[2024-01-23 06:34] LABS: ALKALINE PHOSPHATASE 86 U/L (46-116); ALT/SGPT 26 U/L (7.0-40); AST/SGOT 28 U/L (<34); BILIRUBIN,TOTAL 0.5 MG/DL (0.3-1.2); BLOOD UREA NITROGEN 11 MG/DL (9-23); CALCIUM LEVEL 8.4 MG/DL (8.3-10.6); CARBON DIOXIDE LEVEL 24 MMOL/L (20-31); CHLORIDE LEVEL 109 MMOL/L (98-107); CREATININE FOR GFR 0.57 MG/DL (0.55-1.30); GLOMERULAR FILTRATION RATE > 60.0 (>39); GLUCOSE, FASTING 90 MG/DL (74-106); SODIUM LEVEL 138 MMOL/L (136-145); TOTAL PROTEIN 5.4 G/DL (5.7-8.2)
[2024-01-23] MEDS: KETOROLAC 30 MG/ML 1ML VIAL IV ONE (08:00)
[2024-01-23] MEDS: FOLIC ACID 1MG TAB PO SCH (08:00)
[2024-01-23 08:02] VITALS: BP 128/76
[2024-01-23] MEDS: lisinopriL 5 MG TAB PO SCH (08:02)
[2024-01-23] MEDS: PERCOCET 5MG/325MG TAB PO PRN (09:35)
[2024-01-23] MEDS ORDERED: ACET1TAB55 PO (11:41)
[2024-01-23] MEDS ORDERED: PERC5TAB12 PO (11:41)
[2024-01-23 12:00] VITALS: BP 141/83; TEMP 98.1; O2SAT 97
== END 2024-01-23 13:45 | disposition home or self-care (01) ==
LOC: EDBD 15:18 → M ED 15:18 → M ED INP 19:11 → M MS5PR 20:36
PROVIDERS: ADMIT Internal Medicine; ATTEND Internal Medicine
DX: S42.101A Fracture of unspecified part of scapula, right shoulder, initial encounter for closed fracture (principal); V49.40XA Driver injured in collision with unspecified motor vehicles in traffic accident, initial encounter; Y92.410 Unspecified street and highway as the place of occurrence of the external cause; C34.32 Malignant neoplasm of lower lobe, left bronchus or lung; Z85.42 Personal history of malignant neoplasm of other parts of uterus; M81.0 Age-related osteoporosis without current pathological fracture; M06.9 Rheumatoid arthritis, unspecified; I10 Essential (primary) hypertension; J44.9 Chronic obstructive pulmonary disease, unspecified; Z87.891 Personal history of nicotine dependence; Z79.899 Other long term (current) drug therapy
CPT/HCPCS: 36415; 70450; 71260; 72125; 72128; 73010; 73030; 73200; 80047; 80048; 80053; 80076; 80307; 81001; 82077; 82150; 82550; 82553; 82803; 83605; 83690; 84484; 85025; 85027; 85610; 85730; 93041; 94760; 97161; 97165; 97530; 97535; 99285; J1170; J1885; J2405; Q9967

== ENCOUNTER → 2024-01-31 | Outpatient (CLI) | payer OTHER, MEDICARE ==
[~2024-01-31] MED LIST changes: +ACET1TAB55 PO; +ACET650T61 PO; +CARB25TA9 PO; +PERC5TAB12 PO; +VITA-168 PO
== END ==
LOC: M SOG 07:51
PROVIDERS: ATTEND Physician Assistant
DX: Z53.9 Procedure and treatment not carried out, unspecified reason (principal)

== ENCOUNTER → 2024-03-12 | Outpatient (CLI) | payer OTHER, MEDICARE | LOC: M SOG 07:59 | PROVIDERS: ATTEND Physician Assistant | DX: S42.111D Displaced fracture of body of scapula, right shoulder, subsequent encounter for fracture with routine healing (principal) ==